=== PATIENT | male | born 1990 | race Two or more races ===

== ENCOUNTER 2016-09-18 20:43 | Emergency (ER) | payer BC ==
--- NOTE | 2016-09-18 21:56 | EDM.PDOC ---
ED HPI GENERAL MEDICAL PROBLEM - General Chief Complaint: Lower Extremity Injury/Pain Stated Complaint: FOOT PEELING PAINFUL Time Seen by Provider: 09/18/16 21:30 Source of Information: Reports: Patient History Limitations: Reports: No Limitations - History of Present Illness INITIAL COMMENTS - FREE TEXT/NARRATIVE: 26 year old male presents for evaluation and treatment of bilateral foot pain. Patient reports pain, swelling, erythema and scaling to the bilateral feet. Symptoms have been present for the last several days and have gradually worsened. He has never had anything like this before. Has tried OTC foot powders and creams without relief. Reports the right 3rd toe has become more swollen and erythematous. He preformed an I&D at home and reports he expressed purulent material from the toe. Denies any fevers, chills, nausea or vomiting. Patient is a diabetic. Bilateral Feet Pain Score (Numeric/FACES): 6 - Related Data Allergies Allergy/AdvReac Type Severity Reaction Status Date / Time amoxicillin Allergy Anaphylactic Verified 09/18/16 20:55 Shock Penicillins Allergy Anaphylactic Verified 09/18/16 20:55 Shock Home Meds: Home Meds Doxycycline [Vibramycin] 100 mg PO BID #20 cap 09/18/16 [Rx] Fluconazole [Diflucan] 150 mg PO WEEKLY #4 tablet 09/18/16 [Rx] Hydrocodone/Acetaminophen [Mystic 5-325 Tablet] 1 each PO Q6HR PRN #7 tablet 07/31 [Rx] metFORMIN HCl [Metformin HCl] 500 mg PO BID 09/18/16 [History] Past Medical History Endocrine/Metabolic History: Reports: Diabetes, Type II Social & Family History - Tobacco Use Smoking Status *Q: Current Every Day Smoker Years of Tobacco use: 13 Packs/Tins Daily: 1 - Caffeine Use Caffeine Use: Reports: None - Recreational Drug Use Recreational Drug Use: No Review of Systems - Review of Systems Review Of Systems: See Below Constitutional: Denies: Chills, Fever GI/Abdominal: Denies: Nausea, Vomiting Musculoskeletal: Reports: Foot Pain (bilateral) Skin: Reports: Pruritis (bilateral feet), Rash (erythematous, blanching rash to the bilateral feet with excorations and satelite lesions), Erythema (bilteral feet), Other (left foot distal 3rd toe is swollen and erythematous; no poen wound; clear drainage present in between the toes) ED EXAM, GENERAL - Physical Exam Exam: See Below Exam Limited By: No Limitations General Appearance: Alert, WD/WN, No Apparent Distress Respiratory/Chest: No Respiratory Distress, Lungs Clear, Normal Breath Sounds Cardiovascular: Normal Peripheral Pulses, Regular Rate, Rhythm, No Rub Peripheral Pulses: 2+: Posterior Tibial (L), Posterior Tibial (R), Dorsalis Pedis (L), Dorsalis Pedis (R) Neurological: Alert, Oriented, Normal Cognition Psychiatric: Normal Affect, Normal Mood Skin Exam: Warm, Dry, Erythema (bilateral feet with satelite lesions excorations , erythematous and blanching; right 3rd distal toe is swollen with clear drainage present in between the toes; no open wounds present) Course - Vital Signs Last Recorded V/S: Last Vital Signs Temp 37.1 C 09/18/16 20:52 Pulse 80 09/18/16 20:52 Resp 20 09/18/16 20:52 BP 137/86 09/18/16 20:52 Pulse Ox 99 09/18/16 20:52 - Re-Assessments/Exams Free Text/Narrative Re-Assessment/Exam: 09/18/16 21:49 Discussed treatment options. I believe patient has cellulitis and tinea pedis. He would like to have oral medications and avoid more powders and lotions if possible. I will have him follow-up with podiatry. Departure - Departure Time of Disposition: 21:51 Disposition: Home, Self-Care 01 Condition: Good Clinical Impression: Cellulitis and abscess of foot, Tinea pedis - Discharge Information Prescriptions: Hydrocodone/Acetaminophen [Mystic 5-325 Tablet] 1 each PO Q6HR PRN #7 tablet PRN Reason: Pain Doxycycline [Vibramycin] 100 mg PO BID #20 cap Fluconazole [Diflucan] 150 mg PO WEEKLY #4 tablet Instructions: Cellulitis, Adult Referrals: Caprice Olivas [employer] [Primary Care Provider] - Forms: ED Department Discharge Additional Instructions: Take the doxycycline 1 tablet twice a day for 10 days. This is an antibiotic for the cellulitis. Recommend you do a warm compress such as a warm washcloth to the toe 3 or 4 times a day. Fluconazole 1 tab once a week for 4 weeks. This is for the athletes foot. I recommend you change your socks several times a day while at work. Follow-up with podiatry within 2 weeks for a recheck of your symptoms. [id number] Tylenol or Motrin as needed for pain relief. For severe pain not relieved by [id number] Tylenol or Motrin may take Mystic one tablet every 4-6 hours as needed for severe pain. Mystic can be habit-forming, I recommend you take as few as needed to control your pain. No driving or operating machinery within 12 hours of taking the Mystic. Do not take more than 4 g of Tylenol from all sources in 1 day. Please return to the ER if your symptoms change or worsen.
== END 2016-09-18 22:10 | disposition home or self-care (01) ==
LOC: JD.ED 20:43
CPT/HCPCS: 99283